=== PATIENT | female | born 1980 | race Caucasian/White ===

== ENCOUNTER 2018-09-28 20:01 | Emergency (ER) | payer BC ==
[2018-09-28] MEDS ORDERED: LACTATED RINGERS SOLUTION 1000 ML INFUS.BAG IV ONE (20:15)
[2018-09-28 20:24] VITALS: BP 103/67; PULSE 74; TEMP 99; BMI 24.7
[2018-09-28] MEDS ORDERED: ACETAMINOPHEN 1000 MG/100 ML VIAL (NON FORMULARY) IVPB ONE (20:25)
[2018-09-28] MEDS ORDERED: DEXAMETHASONE SOD PHOSPHATE 4 MG/1 ML VIAL IVPUSH ONE (20:26)
--- NOTE | 2018-09-28 20:28 | PDOC ---
History of Present Illness - General Chief Complaint: Weakness Stated Complaint: WEAKNESS Time Seen by Provider: 09/28/18 20:06 History Source: Patient Exam Limitations: No Limitations - History of Present Illness Initial Comments: 09/28/18 20:27 The patient is a 37F at 13 weeks who presents to the ER with upper respiratory complaints. The patient states that for the past 3 days, she's had chills with worsening throat pain. She admits to her son having a URI which he no longer has. She states that since yesterday, she has had worsening tolerance of her own secretions. She admits to mild nausea without vomiting. She denies any cough, CP, SOB, abdominal pain, dysuria. She denies any change in her voice. Past History - Past Medical History Allergies/Adverse Reactions: Allergies Allergy/AdvReac Type Severity Reaction Status Date / Time No Known Allergies Allergy Verified 09/28/18 20:24 COPD: No - Suicide/Smoking/Psychosocial Hx Smoking History: Never smoked Have you smoked in the past 12 months: No Information on smoking cessation initiated: No Hx Alcohol Use: No Drug/Substance Use Hx: No Review of Systems - Review of Systems Able to Perform ROS?: Yes Is the patient limited [place] proficient: No Constitutional: Yes: Chills. No: Fever HEENTM: Yes: Throat Pain, Throat Swelling Respiratory: No: Cough, Shortness of Breath Cardiac (ROS): No: Chest Pain, Chest Tightness ABD/GI: Yes: Nausea. No: Vomiting *Physical Exam - Vital Signs Last Vital Signs Temp Pulse Resp BP Pulse Ox 99.0 F 74 18 103/67 100 09/28/18 20:01 09/28/18 20:01 09/28/18 20:01 09/28/18 20:01 09/28/18 20:01 - Physical Exam General Appearance: Yes: Nourished, Appropriately Dressed HEENT: positive: Normal Voice, Other (Uvula midline but enlarged with erythematous oropharnyx.). negative: Tonsillar Exudate, Tonsillar Erythema, Nasal Congestion Neck: positive: Trachea midline. negative: Tender Respiratory/Chest: positive: Lungs Clear, Normal Breath Sounds. negative: Respiratory Distress Cardiovascular: positive: Regular Rhythm, Regular Rate, S1, S2. negative: Diastolic Murmur, Systolic Murmur Gastrointestinal/Abdominal: positive: Flat, Soft. negative: Tender Musculoskeletal: negative: CVA Tenderness, CVA Tenderness (R), CVA Tenderness (L ) Extremity: positive: Normal Capillary Refill, Normal Inspection, Normal Range of Motion Integumentary: positive: Normal Color, Dry, Warm Neurologic: positive: Alert, Normal Mood/Affect Moderate Sedation - Procedure Monitoring Vital Signs: Procedure Monitoring Vital Signs Temperature 99.0 F 09/28/18 20:01 Pulse Rate 74 09/28/18 20:01 Respiratory Rate 18 09/28/18 20:01 Blood Pressure 103/67 09/28/18 20:01 O2 Sat by Pulse Oximetry (%) 100 09/28/18 20:01 ED Treatment Course - LABORATORY CBC & Chemistry Diagram: 09/28/18 20:39 09/28/18 20:39 Medical Decision Making - Medical Decision Making 09/28/18 21:15 The patient is a 37F at 13 weeks with no PMH who presents to the ER with worsening throat pain. Strep negative. Uvula enlarged but midline without tonsillar or peritonsillar swelling. Voice normal. Giving steroids (d/w pharmacy for recs), fluids, and pain control and will reassess. 09/28/18 22:12 All labs negative including CBC, CMP, influenza, and strep. Pt states she feels better. Will d/c with PCP f/u. *DC/Admit/Observation/Transfer Diagnosis at time of Disposition: Viral illness - Discharge Dispostion Disposition: HOME Condition at time of disposition: Stable Decision to Admit order: No - Referrals - Patient Instructions Printed Discharge Instructions: Common Cold Additional Instructions: Please take tylenol as needed for aches and sore throat. Drink lots of fluids and eat/drink cold things for your throat. Please follow up with your PCP in 1- 3 days. Please return to the ER if you have any worsening symptoms. Take your medications as prescribed. - Post Discharge Activity
[2018-09-28 20:55] LABS: BASO % 0.3 % (0-2.0); EOS % 0.8 % (0-4.5); HEMOGLOBIN 13.1 GM/dL (10.7-15.3); LYMPH % 20.2 % (8-40); MCH 32.5 pg (25.7-33.7); MCHC 35.5 g/dl (32.0-36.0); MEAN CELL VOLUME 91.5 fl (80-96); MEAN PLT VOLUME 7.9 fl (7.5-11.1); NEUT % 73.7 % (42.8-82.8); PLATELET COUNT 205 K/MM3 (134-434); RBC 4.04 M/mm3 (3.60-5.2); RDW 12.7 % (11.6-15.6); WHITE BLOOD COUNT 9.5 K/mm3 (4.0-10.0)
[2018-09-28] MEDS ORDERED: DEXAMETHASONE SOD PHOSPHATE 4 MG/1 ML VIAL ONE (20:55)
[2018-09-28] MEDS ORDERED: ACETAMINOPHEN INJECTION 100 ML IVPB ONE (20:55)
--- NOTE | 2018-09-28 21:06 | PDOC ---
Attending Attestation - HPI HPI: 09/28/18 21:12 The patient is a 37 year old 13 weeks female , with no significant past medical history, who presents to the emergency department with, difficulty swallowing since yesterday. Patient endorses for the past 3 days she has been experiencing upper respiratory symptoms such as chills. She denies recent chest pain or shortness of breath. Allergies: NKDA - Physicial Exam PE: 09/28/18 21:12 GENERAL: Well-appearing, well-nourished. No apparent distress. HEENT: Erythematous throat. No exudates. Normocephalic, atraumatic. PERRL, EOM intact. CARDIOVASCULAR: Normal S1, S2. Regular rate and rhythm. PULMONARY: Clear to auscultation bilaterally. ABDOMEN: Soft, non-distended, non-tender. EXTREMITIES: Normal ROM in all four extremities. No gross deformities. SKIN: Warm, dry. No rash NEUROLOGICAL: No focal neurological deficits. <Ari Dorantes - Last Filed: 09/28/18 21:12> - Resident Resident Name: Adalberto Luis - ED Attending Attestation I have performed the following: I have examined & evaluated the patient, The case was reviewed & discussed with the resident, I agree w/resident's findings & plan, Exceptions are as noted - Medical Decision Making 09/28/18 21:22 37-year-old female presents with nasal congestion and sore throat, body aches and chills. Both his son and have had similar symptoms strep swab negative cbc unremarkable influenza sent pt receiving tylenol and IVF imp: uri <Li Clarke - Last Filed: 09/28/18 21:25> Attestations - Attestations 09/28/18 21:13 Documentation prepared by Ari Dorantes, acting as rn medical surgical for Li Clarke MD. <Ari Dorantes - Last Filed: 09/28/18 21:12>
[2018-09-28 21:22] LABS: ALBUMIN 3.2 g/dl (3.4-5.0); ALK PHOS 61 U/L (45-117); ANION GAP 7 MMOL/L (8-16); BILIRUBIN,TOTAL 0.2 mg/dL (0.2-1); BLOOD UREA NITROGEN 8 mg/dL (7-18); CALCIUM 8.5 mg/dL (8.5-10.1); CHLORIDE 107 mmol/L (98-107); CO2 25 mmol/L (21-32); CREATININE 0.4 mg/dL (0.55-1.3); GLUCOSE,RANDOM 93 mg/dL (74-106); POTASSIUM 3.5 mmol/L (3.5-5.1); SGOT/AST 11 U/L (15-37); SGPT/ALT 15 U/L (13-61); SODIUM 138 mmol/L (136-145); TOT PROT 6.6 g/dl (6.4-8.2)
== END 2018-09-28 22:33 | disposition home or self-care (01) ==
LOC: JER 20:01
PROC: 3E033NZ Introduction of Analgesics, Hypnotics, Sedatives into Peripheral Vein, Percutaneous Approach (ICD-10-PCS; principal; 2018-09-28)
PROC: 3E0333Z Introduction of Anti-inflammatory into Peripheral Vein, Percutaneous Approach (ICD-10-PCS; 2018-09-28)
DX: O26.891 Other specified pregnancy related conditions, first trimester (principal); O98.511 Other viral diseases complicating pregnancy, first trimester; B33.8 Other specified viral diseases; Z3A.13 13 weeks gestation of pregnancy
CPT/HCPCS: 36415; 80053; 85025; 87070; 87804; 87880; 99282-25; J0131